=== PATIENT | male | born 1935 | race Caucasian/White ===

== ENCOUNTER 2018-04-11 14:50 | Day surgery (SDC) | payer MEDICARE, OTHER ==
[~2018-04-11] VITALS: Ht 167.6 cm; Wt 108.3 kg
[~2018-04-11 14:50] MED LIST: ASPI81TA30 PO; CETI-110 PO; CLOP75TA33 PO; FAMO20TA8 PO; METO100T14 PO; NITR0.4T51 SL; OMEG1CAP13 PO; PRED20TA PO; VALS160T2 PO
[2018-04-11 15:15] VITALS: BP 165/64
[2018-04-11] MEDS ORDERED: LORazepam 0.5 MG tablet PO PRN (15:15)
[2018-04-11] MEDS ORDERED: normal saline 1000ml 1,000 ML IV SCH (15:15)
[2018-04-11] MEDS ORDERED: diphenhydrAMINE 25mg capsule PO PRN (15:15)
[2018-04-11 16:12] LABS: ANION GAP 8 (8-16); BLOOD UREA NITROGEN 23 MG/DL (7-18); BUN/CREATININE RATIO 16.5 (5.4-32.0); CALCIUM 8.5 MG/DL (8.5-10.1); CHLORIDE 108 MMOL/L (99-107); CREATININE 1.39 MG/DL (0.60-1.10); GLUCOSE 111 MG/DL (70-104); POTASSIUM 3.8 MMOL/L (3.5-5.1); SODIUM 144 MMOL/L (135-145); eGFR 49 ML/MIN
[2018-04-11 16:20] LABS: BASOPHILS % (AUTO) 0.1 % (0-1); EOSINOPHILS # (AUTO) 0.3 X10'3 (0-0.9); EOSINOPHILS % (AUTO) 0.7 % (0-6); HEMATOCRIT 24.7 % (42.0-52.0); HEMOGLOBIN 8.2 g/dl (14.0-17.9); INR 1.2 INR; LYMPHOCYTES # (AUTO) 3.9 X10'3 (1.1-4.8); LYMPHOCYTES % (AUTO) 9.2 % (21-51); MEAN CORPUSCULAR HEMOGLOBIN 39.4 PG (27.0-31.0); MEAN CORPUSCULAR HGB CONC 33.1 % (33.0-36.5); MEAN CORPUSCULAR VOLUME 119.1 FL (78-98); MEAN PLATELET VOLUME 8.8 FL (7.4-10.4); MONOCYTES # (AUTO) 15.3 X10'3 (0-0.9); PARTIAL THROMBOPLASTIN TIME 29 SECONDS (22-32); PLATELET COUNT 102 X10'3 (140-440); PROTHROMBIN TIME 11.9 SECONDS (9.0-12.0); RED BLOOD COUNT 2.07 X10'6 (4.70-6.10); RED CELL DISTRIBUTION WIDTH 17.9 % (11.5-14.5)
[2018-04-11 16:23] LABS: WHITE BLOOD COUNT 42.6 X10'3 (4.5-11.0)
[2018-04-11] MEDS ORDERED: METO50TA16 PO (16:28)
[2018-04-11] MEDS ORDERED: DOCO1CAP6 PO (16:28)
[2018-04-11 16:33] LABS: TOTAL CELLS COUNTED 100
[2018-04-11 16:34] LABS: ANISOCYTOSIS 2+; PLATELET ESTIMATE DECREASED
[2018-04-11] MEDS ORDERED: FLO0.4C PO (16:40)
[2018-04-11] MEDS ORDERED: DOXY100C2 PO (16:40)
[2018-04-11] MEDS ORDERED: HYDR12.55 PO (16:40)
[2018-04-11] MEDS ORDERED: GABA-532 PO (16:40)
[2018-04-11] MEDS ORDERED: ATOR20TA PO (16:40)
== END 2018-04-11 17:00 | disposition home or self-care (01) ==
LOC: SSTAY O 14:50
PROVIDERS: ATTEND Internal Medicine Interventional Cardiology
DX: I25.10 Atherosclerotic heart disease of native coronary artery without angina pectoris (principal); Z53.8 Procedure and treatment not carried out for other reasons; G47.33 Obstructive sleep apnea (adult) (pediatric); I10 Essential (primary) hypertension; N40.0 Benign prostatic hyperplasia without lower urinary tract symptoms; E78.5 Hyperlipidemia, unspecified; Z95.5 Presence of coronary angioplasty implant and graft; J44.9 Chronic obstructive pulmonary disease, unspecified; Z72.89 Other problems related to lifestyle; Z79.82 Long term (current) use of aspirin; Z79.2 Long term (current) use of antibiotics; Z79.891 Long term (current) use of opiate analgesic; Z79.899 Other long term (current) drug therapy; Z88.8 Allergy status to other drugs, medicaments and biological substances; Z98.890 Other specified postprocedural states; Z82.49 Family history of ischemic heart disease and other diseases of the circulatory system
CPT/HCPCS: 36415; 80048; 85025; 85610; 85730; 93005; J7030